=== PATIENT | male | born 1965 | race African-American/Black ===

== ENCOUNTER 2017-10-01 11:58 | Inpatient (IN) | payer SELFPAY ==
[2017-10-01 13:45] LABS: ADD MAN DIFF? NO
[2017-10-01] MEDS: MORPHINE SULFATE 2 MG/ML DISP.SYRIN. IV (13:48)
[2017-10-01] MEDS: ONDANSETRON PF 4 MG/2 ML VIAL. IV (13:48)
[2017-10-01 13:50] LABS: BASO # 0.1 x10^3/uL (0.0-0.2); BASO % 0 % (0-3); EOS # 0.3 x10^3/uL (0.0-0.7); EOS % 2 % (0-3); HEMATOCRIT 39.7 % (39.0-53.0); HEMOGLOBIN 13.6 g/dL (13.0-17.5); LYMPH % 13 % (24-48); MEAN CORPUSCULAR HEMOGLOBIN 32 pg (25-35); MEAN CORPUSCULAR HGB CONC 34 g/dL (31-37); MEAN CORPUSCULAR VOLUME 92 fL (79-100); MONO # 1.7 x10^3/uL (0.0-1.1); MONO % 12 % (0-9); NEUT # 10.7 x10^3uL (1.8-7.7); NEUT % 73 % (31-73); PLATELET COUNT 284 x10^3/uL (140-400); RED BLOOD COUNT 4.31 x10^6/uL (4.30-5.70); RED CELL DISTRIBUTION WIDTH 14.3 % (11.5-14.5); WHITE BLOOD COUNT 14.7 x10^3/uL (4.0-11.0)
[2017-10-01 13:58] LABS: ANION GAP 14 (6-14); BLOOD UREA NITROGEN 38 mg/dL (8-26); BUN/CREATININE RATIO 24 (6-20); CALCIUM 8.9 mg/dL (8.5-10.1); CARBON DIOXIDE 21 mmol/L (21-32); CHLORIDE 95 mmol/L (98-107); CREATININE 1.6 mg/dL (0.7-1.3); GFR 55.2; GLUCOSE 219 mg/dL (70-99); POTASSIUM 3.3 mmol/L (3.5-5.1); SODIUM 130 mmol/L (136-145)
[2017-10-01] MEDS ORDERED: CONTRAST GIVEN. MC (14:00)
[2017-10-01 14:04] LABS: ALBUMIN/GLOBULIN RATIO 0.6 (1.0-1.7); ALK PHOS 79 U/L (46-116); ALT (SGPT) 51 U/L (16-63); AST (SGOT) 44 U/L (15-37); LIPASE 124 U/L (73-393); TOTAL BILIRUBIN 0.4 mg/dL (0.2-1.0); TOTAL PROTEIN 7.8 g/dL (6.4-8.2)
[2017-10-01 14:10] LABS: BILIRUBIN,URINE NEGATIVE (NEG); CLARITY,URINE CLEAR; COLOR,URINE YELLOW; GLUCOSE,URINE NEGATIVE (NEG); NITRITE,URINE NEGATIVE (NEG); PH,URINE 5.5; PROTEIN,URINE 100 mg/dL (NEG-TRACE); UROBILINOGEN,URINE 0.2 mg/dL (0.2 mg/dL)
[2017-10-01] MEDS: IOHEXOL 300 MG/ML 100ML VIAL. IV (14:15)
[2017-10-01 14:21] LABS: BACTERIA,URINE 0 /HPF (0-FEW); RBC,URINE TNTC /HPF (0-2); WBC,URINE TNTC /HPF (0-4)
[2017-10-01] MEDS: IV NORMAL SALINE 1000ML BAG 1,000 ML IV ×2 (14:54→21:10)
[2017-10-01] MEDS: POTASSIUM CHLORIDE 20 MEQ TABLET.ER. PO (14:54)
[2017-10-01 15:11] LABS: LACTIC ACID 1.1 mmol/L (0.4-2.0)
[2017-10-01] MEDS ORDERED: ONDANSETRON PF 4 MG/2 ML VIAL. IV (15:30)
[2017-10-01] MEDS ORDERED: ACETAMINOPHEN 325 MG TABLET. PO (15:30)
[2017-10-01] MEDS ORDERED: fentaNYL PF VIAL 100 MCG/2 ML VIAL IV (15:30)
[2017-10-01] MEDS: LABETALOL 20 MG/4 ML DISP.SYRIN. IVP (15:36)
[2017-10-01] MEDS: hydrALAZINE 20 MG/ML VIAL. IVP (17:45)
[2017-10-01] MEDS: INSULIN LISPRO 300 UNITS/3 ML INSULN.PEN. SQ (22:17)
[2017-10-01] MEDS: INSULIN GLARGINE 300 UNITS/3 ML INSULN.PEN. SQ (22:18)
[2017-10-01 22:26] LABS: POC GLUCOSE 322 mg/dL (70-99)
[2017-10-02 04:43] LABS: ADD MAN DIFF? NO
[2017-10-02 04:45] LABS: BASO # 0.1 x10^3/uL (0.0-0.2); BASO % 1 % (0-3); EOS # 0.3 x10^3/uL (0.0-0.7); EOS % 3 % (0-3); HEMATOCRIT 36.4 % (39.0-53.0); HEMOGLOBIN 12.5 g/dL (13.0-17.5); LYMPH # 1.4 x10^3/uL (1.0-4.8); LYMPH % 15 % (24-48); MEAN CORPUSCULAR HEMOGLOBIN 32 pg (25-35); MEAN CORPUSCULAR HGB CONC 35 g/dL (31-37); MEAN CORPUSCULAR VOLUME 92 fL (79-100); MONO # 1.4 x10^3/uL (0.0-1.1); MONO % 16 % (0-9); NEUT % 66 % (31-73); PLATELET COUNT 275 x10^3/uL (140-400); RED BLOOD COUNT 3.95 x10^6/uL (4.30-5.70); RED CELL DISTRIBUTION WIDTH 14.3 % (11.5-14.5); WHITE BLOOD COUNT 9.2 x10^3/uL (4.0-11.0)
[2017-10-02 05:37] LABS: ALBUMIN 2.6 g/dL (3.4-5.0); ALBUMIN/GLOBULIN RATIO 0.6 (1.0-1.7); ALK PHOS 70 U/L (46-116); ALT (SGPT) 40 U/L (16-63); ANION GAP 11 (6-14); AST (SGOT) 30 U/L (15-37); BLOOD UREA NITROGEN 26 mg/dL (8-26); BUN/CREATININE RATIO 20 (6-20); CALCIUM 8.4 mg/dL (8.5-10.1); CARBON DIOXIDE 22 mmol/L (21-32); CHLORIDE 101 mmol/L (98-107); CREATININE 1.3 mg/dL (0.7-1.3); GFR 70.1; GLUCOSE 187 mg/dL (70-99); POTASSIUM 3.3 mmol/L (3.5-5.1); SODIUM 134 mmol/L (136-145); TOTAL BILIRUBIN 0.3 mg/dL (0.2-1.0); TOTAL PROTEIN 6.9 g/dL (6.4-8.2)
[2017-10-02 08:05] LABS: POC GLUCOSE 186 mg/dL (70-99)
[2017-10-02] MEDS: IV NORMAL SALINE 1000ML BAG 1,000 ML IV ×2 (09:58→23:29)
[2017-10-02] MEDS ORDERED: HYDROcodone/APAP 5/325MG 1 TAB TABLET PO (10:00)
[2017-10-02] MEDS ORDERED: ONDANSETRON PF 4 MG/2 ML VIAL. IV (10:00)
[2017-10-02] MEDS ORDERED: DEXTROSE 50% 25 GM / 50ML DISP.SYRIN. IV (10:00)
[2017-10-02] MEDS: CARVEDILOL 12.5 MG TABLET. PO ×2 (12:11→17:15)
[2017-10-02] MEDS: LISINOPRIL 20 MG TABLET PO (12:12)
[2017-10-02] MEDS: INSULIN LISPRO 300 UNITS/3 ML INSULN.PEN. SQ ×4 (12:16→17:18)
[2017-10-02] MEDS: cefTRIAXone IV Push 1 GM VIAL. IVP (15:49)
[2017-10-02 16:44] LABS: POC GLUCOSE 293 mg/dL (70-99)
[2017-10-02 16:44] LABS: POC GLUCOSE 140 mg/dL (70-99)
[2017-10-02 20:50] LABS: POC GLUCOSE 133 mg/dL (70-99)
[2017-10-02] MEDS: LACTOBACILLUS RHAMNOSUS GG 1 CAPSULE. PO (20:54)
[2017-10-02] MEDS: INSULIN GLARGINE 300 UNITS/3 ML INSULN.PEN. SQ (20:58)
[2017-10-02] MEDS: LABETALOL 20 MG/4 ML DISP.SYRIN. IVP (23:29)
[2017-10-03] MEDS: LABETALOL 20 MG/4 ML DISP.SYRIN. IVP ×2 (02:50→13:37)
[2017-10-03 07:51] LABS: POC GLUCOSE 142 mg/dL (70-99)
[2017-10-03] MEDS: INSULIN LISPRO 300 UNITS/3 ML INSULN.PEN. SQ ×4 (08:00→12:00)
[2017-10-03] MEDS: CARVEDILOL 12.5 MG TABLET. PO (08:26)
[2017-10-03] MEDS: LACTOBACILLUS RHAMNOSUS GG 1 CAPSULE. PO (08:26)
[2017-10-03] MEDS: LISINOPRIL 20 MG TABLET PO (08:26)
[2017-10-03] MEDS ORDERED: LABETALOL 20 MG/4 ML DISP.SYRIN. IVP (09:30)
[2017-10-03 11:20] LABS: POC GLUCOSE 147 mg/dL (70-99)
[2017-10-03] MEDS: hydroCHLOROthiazide 12.5 MG CAPSULE PO (11:23)
[2017-10-03] MEDS: cefTRIAXone IV Push 1 GM VIAL. IVP (14:30)
== END 2017-10-03 16:12 | disposition home or self-care (01) | DRG 689 ==
LOC: 5 SOUTH 18:16 → ER 11:58 → 5 SOUTH 15:00
DX: N30.91 Cystitis, unspecified with hematuria (principal); N17.0 Acute kidney failure with tubular necrosis; N12 Tubulo-interstitial nephritis, not specified as acute or chronic; E87.1 Hypo-osmolality and hyponatremia; E44.1 Mild protein-calorie malnutrition; E11.9 Type 2 diabetes mellitus without complications; N40.0 Benign prostatic hyperplasia without lower urinary tract symptoms; E87.6 Hypokalemia; I10 Essential (primary) hypertension; Z79.4 Long term (current) use of insulin; Z79.899 Other long term (current) drug therapy; Z83.3 Family history of diabetes mellitus; Z68.25 Body mass index [BMI] 25.0-25.9, adult
CPT/HCPCS: 36415; 74178; 80053; 81001; 82962; 83605; 83690; 85025; 87040; 87086; 96374; 96375; 99285; 99285-25; J0360; J0690; J0696; J1815; J2270; J2405; J3490; J7030; Q9967

== ENCOUNTER → 2018-08-05 | Outpatient (CLI) | payer OTHER ==
[2017-10-03 15:00] VITALS: BP 147/82
[~2018-08-05] MED LIST: CARV25TA PO; CIPR500T94 PO; INSU100V13 SQ; INSU100V31 SQ; LISI-334 PO; LISI30TA4 PO
--- NOTE | 2018-08-05 09:08 | RAD ---
3 views right shoulder 08/05/2018 8:21 AM Indication: DISABILITY DETERMINATION, CHRONIC RT SHOULDER PAIN FROM LIFTING INJURY Comparison: None Findings: There is no acute fracture or dislocation. Articular surfaces are uninterupted and smooth. Soft tissues are unremarkable. Impression: No evidence of acute osseous abnormality. Electronically signed by: Singh Cespedes MD (08/05/2018 9:05 AM) [id number]
--- NOTE | 2018-08-05 09:08 | RAD ---
2 views of the lumbar spine 08/05/2018 INDICATION: Chronic low back pain COMPARISON STUDY: None FINDINGS: No evidence of acute fracture or alignment abnormality is identified. Vertebral body heights are preserved. Mild disc space narrowing is seen. Mild facet arthrosis noted particularly inferiorly. No radiographic evidence of spondylolysis or significant spondylolisthesis is seen. No acute soft tissue changes are identified. IMPRESSION: Minimal degenerative changes without evidence of acute osseous abnormality Electronically signed by: Singh Cespedes MD (08/05/2018 9:05 AM) [id number]
== END | disposition home or self-care (01) ==
LOC: RAD 07:39
PROVIDERS: ATTEND Surgery
DX: M47.816 Spondylosis without myelopathy or radiculopathy, lumbar region (principal); M12.88 Other specific arthropathies, not elsewhere classified, other specified site; M25.511 Pain in right shoulder; G89.29 Other chronic pain
CPT/HCPCS: 72100; 73030